=== PATIENT | male | born 1980 | race Caucasian/White ===

== ENCOUNTER 2022-01-06 09:02 | Emergency (ER) | payer OTHER, SELFPAY ==
[2022-01-06 09:35] VITALS: BP 126/78; PULSE 80; O2SAT 97
[2022-01-06 09:38] VITALS: BP 126/78; PULSE 81; RESP 19; TEMP 36.3; O2SAT 97; BMI 33.6
--- NOTE | 2022-01-06 10:02 | ED_ITS ---
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 He describes no specific red flags for his back pain-no fevers, IV drug use, recent trauma, recent procedures or instrumentation or personal history of cancer. He notes the pain in the right- sided lumbar sacral area with pain radiating into his buttock to the proximal portion of his thigh. He does not describe any weakness or paresthesias. He has had similar pain a number of years ago notes the Flexeril was not particularly helpful and the pain did resolve. He currently is taking 400 mg of ibuprofen and was given some stretching exercises that have not made a signifi cant difference over the past couple of days. Related Data Previous Rx's Medication Instructions Recorded oxycodone-acetaminophen 5 mg-325 1 tab PO Q8H PRN #10 tab 01/06/22 mg tablet (Percocet) Allergies Allergy/AdvReac Type Severity Reaction Status Date / Time No Known Drug Allergies Allergy Verified 01/06/22 09:41 Review of Systems Review of Systems Narrative: Remainder of complete review of systems is otherwise unremarkable except for that included in the HPI. Patient History Social History Smoking Status: Current some day smoker Smoking Status: Current some day smoker tobacco type: cigarettes alcohol intake frequency: 0-2 drinks per day Substance Use Type: does not use Exam Initial Vital Signs Initial Vital Signs: Vital Signs Temperature 97.3 F L 01/06/22 09:38 Pulse Rate 81 01/06/22 09:38 Respiratory Rate 19 01/06/22 09:38 Blood Pressure 126/78 01/06/22 09:38 Pulse Oximetry 97 01/06/22 09:38 General: Healthy appearing, in no acute distress. Able to give a complete and coherent history. Well-nourished well-developed, able to quickly and easily get up off the bed to explain and point to his area of pain Respiratory: Lungs are clear to auscultation, no wheezing no rales no rhonchi. Full and symmetrical air movement Cardiac: Regular rate and rhythm no murmurs no bruits Abdomen: Soft, nontender, good bowel tones, no flank pain Spine: Mild paraspinous spasm laterally L3 to the sacrum right side without any concurrent skin changes Skin: Warm and dry, no rashes Neurologic: Grossly neurologically intact with no obvious asymmetries or abnormalities. With straight leg raising on the right he notices pain at approximately 170? Extremities: No trauma, well perfused Psych: Cooperative, appropriate insight and affect Course Vital Signs Vital signs: Vital Signs - 8 hr 01/06/22 09:38 Temperature 97.3 F L Pulse Rate 81 Respiratory Rate 19 Blood Pressure 126/78 Pulse Oximetry 97 MDM - Back Pain/Injury MDM Narrative Medical decision making narrative: 41-year-old gentleman with classic history of acute low back strain with worsening pain and now mild radicular symptoms for approximately 18 hours. Looking for help with pain and help with sleep as well as reassurance. We discussed the lack of red flags and very common presentation of symptoms. Explain to him the reasons that imaging is not required nor appropriate at this time. Discussed pain control. He is given a shot of Toradol and will give him a brief course of Percocet for that he at least is able to sleep. As the radicular symptoms are just starting any has a very physical job will give him a work note the next 48 hours. Questions are answered he is safe for home discharge Discharge Plan Departure Patient Disposition: Home Clinical Impression: Acute back pain with sciatica Instructions: DI for Back Pain With Sciatica Activity Restrictions/Additional Instructions: Thank you for coming in today I am sorry that you are hurting as much as you are however, I am reassured that your presentation is not concerning for complications such as infections or bony problems. Using 400 mg of ibuprofen (2 [id number] pills) and 1 Tylenol every 6 hours can be very helpful in controlling pain. For severe pain using 400 mg of ibuprofen and 1 Percocet can be helpful. Percocet is narcotic and narcotics will make you constipated. Please make sure you are drinking extra water and add extra fiber with the days that you do take Percocet. I would encourage gentle movement, at least up and walking around the house for the next couple of days. From that increase activity as tolerated. After the 1st 48 hours I would go back to the stretching exercises that were recommended for low back pain. If you find that you are getting worse or develop any new symptoms, please feel free to return to the emergency department for further evaluation. Prescriptions: New oxycodone-acetaminophen [Percocet] 5-325 mg tablet 1 tab PO Q8H PRN (Reason: pain) Qty: 10 0RF Referrals: Dali Allen [Primary Care Provider] - Stand Alone Forms: Work Release Note
[2022-01-06] MEDS: KETOROLAC 30 MG/ML VIAL IM (10:54)
== END 2022-01-06 11:23 | disposition home or self-care (01) ==
PROVIDERS: Emergency Provider Emergency Medicine; PCP Pediatrics
DX: M54.31 Sciatica, right side (principal); M54.50 Low back pain, unspecified
CPT/HCPCS: 96372; 99283; J1885